=== PATIENT | male | born 1950 | race Caucasian/White ===

== ENCOUNTER 2016-11-25 06:35 | Observation (INO) | payer OTHER ==
--- NOTE | ~2016-11-25 | CN ---
Consultation Report [facility] [address] [place]. [address] NAME: TABBY HE : 52 STATUS : ADM IN PAT#: [id number] AGE: 66 ADM/REG DATE : 11/25/16 MR#: [id number] REPORT SERV DATE: 11/25/16 DICTATED BY: ESTEFANIA RIVERA DATE: 11/25/16 REPORT STATUS : Draft TRANSCRIBED BY: MODL DATE: 11/25/16 GI CONSULTATION DATE OF CONSULTATION: 11/25/2016 REASON FOR CONSULTATION: Evaluation and management of hematemesis. HISTORY OF PRESENT ILLNESS: Please note that the history of present illness is somewhat hard to gather from Mr. He as he is hard to keep awake for interview. It appears that Mr. He presented to [facility] on 11/24/2016 with a chief complaint of back pain. Also gave a history of upper abdominal discomfort, bloating, hematemesis documented by ER triage on four different occasions. He tells me only one. He at present is resting, it is hard to awaken. When we get him awake, he gives you one to two answers when you question and then goes back to sleep. Currently, he denies abdominal pain. He denies any black tarry stools or hematochezia. He tells me that he is unsure of what his emesis look like. It is noted that he vomited bright red blood, but was Hemoccult and Gastroccult negative in the emergency room, but had orthostatic hypotension. He tells me he has never had an EGD nor a colonoscopy. He has presently been placed on a Protonix drip. Hemoglobin on admission 14.3, presently now 13.7 with a BUN and creatinine that were normal at 13 and 1.17. He denies taking any NSAIDs. I have discussed with them EGD in the morning. Risks, benefits, alternatives, and complications were detailed for him to include, but not limited to risk of bleeding, perforation, infection, reaction to medications with cardiac and pulmonary side effects. He is agreeable to proceed. PAST MEDICAL HISTORY: Chronic back pain, irritable bowel syndrome, kidney stones, obstructive sleep apnea, restless legs syndrome, anxiety, depression, bipolar disorder, meningitis, syncopal episodes, hyperlipidemia, and alcohol abuse. PAST SURGICAL HISTORY: Left inguinal herniorrhaphy with mesh placement in 2016, tummy tack, bilateral pectoral implants, and eye surgery. SOCIAL HISTORY: Past tobacco. Denies alcohol. No IV drugs. Lives with the partner. FAMILY HISTORY: Noncontributory from a GI standpoint. ALLERGIES: HE IS ALLERGIC TO . MEDICATIONS: His home medications consist of Tylenol, ProAir HFA, Sinemet, Klonopin, vitamin B12, Neurontin, Vistaril, and Neupro. REVIEW OF SYSTEMS: Somewhat limited secondary to the patient's somnolent status. PHYSICAL EXAMINATION: Consultation Report [place] [id number] [place]. [address] NAME: TABBY HE : 52 STATUS : ADM IN [facility]#: [id number] AGE: 66 ADM/REG DATE : 11/25/16 MR#: [id number] REPORT SERV DATE: 11/25/16 DICTATED BY: ESTEFANIA RIVERA DATE: 11/25/16 REPORT STATUS : Draft TRANSCRIBED BY: SANTINO DATE: 11/25/16 VITAL SIGNS: Temperature is 98.2, pulse 99, respirations 20, and blood pressure 118/74. NEURO: Reveals a somnolent, hard to awake and keep awake male, resting in bed. GENERAL: He is somewhat cooperative with no obvious apparent distress. HEAD, EARS, EYES, NOSE, AND THROAT: Anicteric. Pupils are equal, round, reactive to light and accommodation. Normocephalic and atraumatic. NECK: No JVD. No palpable nodes. LUNGS: Diminished. CARDIOVASCULAR SYSTEM: Regular rate and rhythm. ABDOMEN: Soft and nontender. No distention. No rebound. No guarding. No organomegaly elicited on exam. EXTREMITIES: No edema. Normal distal pulses. SKIN: Warm, dry, and intact. PERTINENT LABORATORY DATA: Sodium 144, potassium 3.8, BUN of 13, and creatinine 1.17. White count 7.7 and hemoglobin 13.79. No abdominal imaging done on this admission. ASSESSMENT: 1. Hematemesis, documented four episodes; however, Gastroccult negative. 2. Gas bloat and distension. 3. Orthostatic hypotension. 4. Chronic low back pain. 5. Bipolar disorder. 6. Anxiety and depression. PLAN: 1. Clear liquid diet, n.p.o. after midnight. 2. Protonix ip. 3. Monitor H and H, transfuse if needed. 4. EGD in the morning with Dr. Perez, other recommendations to follow. GONSALO/SANTINO Estefania CHEMA Almeida / [id number] CC: Malcom Cano M.D.
--- NOTE | ~2016-11-25 | DS ---
Discharge Summary [facility] [address] [place]. [address] NAME: TABBY KITCHEN : 52 STATUS : DIS Giovanny PAT#: [id number] AGE: 66 ADM/REG DATE : 11/25/16 MR#: [id number] REPORT SERV DATE: 11/27/16 DICTATED BY: DATE: REPORT STATUS : Draft TRANSCRIBED BY: MODL DATE: 11/26/16 ADMISSION DATE: 11/25/2016 DISCHARGE DATE: 11/26/2016 [facility] DISCHARGE DIAGNOSES: 1. Hematemesis-found to have a healing Ora-Pond tear on upper endoscopy. 2. Orthostatic hypotension-resolved with IV fluids. 3. Chronic low back pain. 4. Bipolar disorder. 5. Anxiety and depression. IMAGING AND DIAGNOSTICS: Include upper endoscopy by Dr. Drake Perez on 11/26/2016 demonstrating a healing Ora-Pond tear. A portable chest x-ray on 11/25/2016 showing mild right basilar atelectasis but no acute cardiopulmonary abnormality. PERTINENT LABS: Hemoglobin remained stable throughout hospitalization with values ranging from 13 to 14. Comprehensive metabolic panel was normal with the exception of carbon dioxide level 23, glucose 137. BRIEF HISTORY: For full details, please see the previously dictated history of present illness by Dr. Eron Nguyễn. This is a 66-year-old white male who presents to the emergency department with chief complaint of vomiting bright red blood, also with a history of dyspepsia, bloating, some abdominal pain for several months prior. In the emergency department, hemoglobin and hematocrit were normal. Hemoccult and Gastroccult were negative. The patient was noted to have orthostatic hypotension, and was admitted to the Hospitalist Service for further evaluation. HOSPITAL COURSE: The patient was admitted to [address] [place] [address], placed on IV fluids. Serial hemoglobin and hematocrit values were obtained and did not demonstrate any decline. The patient was kept n.p.o. for GI evaluation, and placed on a Protonix drip. Nonpharmacologic DVT prophylaxis was utilized. He had no recurrence of abdominal symptoms or hematemesis while in the hospital. He underwent an uneventful EGD on 11/26/2016 demonstrating a healing Ora-Pond tear. Gastroenterology recommended Protonix 40 mg p.o. twice a day for 4 weeks, and a soft bland diet. The patient was felt appropriate for discharge from a GI perspective. DISCHARGE DISPOSITION: The patient will need to follow up with his primary care provider in 7 to 10 days, adhere to a soft bland diet until abdominal symptoms are improved. He was explicitly instructed not to take any nonsteroidal anti-inflammatories, aspirin, Goody's powders, or other blood thinners following discharge. Discharge Summary [place] [id number]. [address] NAME: TABBY KITCHEN : 52 STATUS : DIS Giovanny PAT#: [id number] AGE: 66 ADM/REG DATE : 11/25/16 MR#: [id number] REPORT SERV DATE: 11/27/16 DICTATED BY: DATE: REPORT STATUS : Draft TRANSCRIBED BY: SANTINO DATE: 11/26/16 DISCHARGE MEDICATIONS: Include: 1. Sinemet 25/100, two tablets p.o. at bedtime. 2. Gabapentin 1600 mg p.o. twice a day. 3. Vistaril 50 mg p.o. at bedtime. 4. Neupro 2 mg patch topical q.24 hours. 5. Tylenol 650 mg p.o. three times a day as needed for pain. 6. ProAir HFA two puffs inhaled daily as needed for shortness of breath. 7. B12 1000 mcg IM q.14 days. 8. Klonopin 2 mg p.o. at bedtime p.r.n. insomnia. 9. Protonix 40 mg p.o. b.i.d. for four weeks. Prescription was provided. ARTEMIO/SANTINO Malcom Cano M.D. / [id number] CC: Lisette Trevizo MD
--- NOTE | ~2016-11-25 | EGD ---
EGD REPORT [facility] [address] [place] [address] NAME: JERRY HE : 52 STATUS : ADM IN PAT#: [id number] AGE: 66 ADM/REG DATE : 11/25/16 MR#: [id number] REPORT SERV DATE: 11/26/16 DICTATED BY: DRAKE CELAYA DATE: 11/26/16 REPORT STATUS : Draft TRANSCRIBED BY: [facility] DATE: 11/26/16 Endoscopy Center Patient Name: Jerry He Date of : 1950 Attending MD: DRAKE CELAYA MD Procedure Date No Time: 11/26/2016 Procedure: Upper GI endoscopy Indications: Hematemesis Referring MD: YENIFER HILL MD Medicines: Monitored Anesthesia Care Complications: No immediate complications. Estimated blood loss: None. Procedure: After obtaining informed consent, the endoscope was passed under direct vision. Throughout the procedure, the patient's blood pressure, pulse, and oxygen saturations were monitored continuously. The GIF [id number] was introduced through the mouth, and advanced to the second part of duodenum. The upper GI endoscopy was accomplished without difficulty. The patient tolerated the procedure well. Findings: A medium-sized non-bleeding Ora-Pond tear with no stigmata of recent bleeding was found. The entire examined stomach was normal. The examined duodenum was normal. The cardia and gastric fundus were normal on retroflexion. The exam was otherwise without abnormality. Impression: - Ora-Pond tear. - The examination was otherwise normal. Recommendation: - Return patient to hospital iqbal for possible discharge same day. - Soft diet today. - Use Protonix (pantoprazole) 40 mg PO BID for 4 weeks. Procedure Code(s): --- Professional --- 61248, Esophagogastroduodenoscopy, flexible, transoral; diagnostic, including collection of specimen(s) by brushing or washing, when performed (separate procedure) Diagnosis Code(s): --- Professional --- K22.6, Gastro-esophageal laceration-hemorrhage syndrome K92.0, Hematemesis EGD REPORT [facility] [address] [place]. [address] NAME: JERRY HE : 52 STATUS : ADM IN [facility]#: [id number] AGE: 66 ADM/REG DATE : 11/25/16 MR#: [id number] REPORT SERV DATE: 11/26/16 DICTATED BY: DRAKE CELAYA DATE: 11/26/16 REPORT STATUS : Draft TRANSCRIBED BY: [employer] DATE: 11/26/16 CPT copyright 2013 [employer]. All rights reserved. The codes documented in this report are preliminary and upon certified procedural coder review may be revised to meet current compliance requirements. Drake Celaya MD DRAKE CELAYA MD 11/26/2016 10:53 AM This report has been signed electronically. Number of Addenda: 0 Note Initiated On: 11/26/2016 10:31 AM Scope Withdrawal Time 0 hours 0 minutes 0 seconds [id number] [facility] [place] [address]
--- NOTE | ~2016-11-25 | HP ---
History And Physical [facility] [address] [place]. [address] NAME: TABBY HE : 52 STATUS : ADM IN PAT#: [id number] AGE: 66 ADM/REG DATE : 11/25/16 MR#: [id number] REPORT SERV DATE: 11/25/16 DICTATED BY: ERON ARROYO DATE: 11/25/16 REPORT STATUS : Draft TRANSCRIBED BY: MODL DATE: 11/25/16 DATE OF ADMISSION: 11/25/2016 CHIEF COMPLAINT: Vomiting bright red blood. HISTORY OF PRESENT ILLNESS: This is a 66-year-old male, who presents to the emergency room at [facility] with the above-mentioned complaint. History is obtained from the patient, his grade setter who is at bedside, and reviewing data available on the [employer] system. According to Mr. He and his partner, he had been in his usual state of health until this evening around 11:30 p.m. when he suddenly started vomiting bright red blood. His grade setter says there was blood everywhere on the carpet, on the greene, on the screens, and everywhere. Apparently, he has had some dyspepsia and passing gas problems for a while and has not ever been seen by a flanging operator. He does have chronic back pain and severe restless legs syndrome, for which he has been seen in many specialty institutions as well. Mr. He cannot sit still at all and he apparently walks around all night long. They ate supper last night and he retired to bed when this happened. The patient was subsequently brought to the emergency room to be evaluated. In the emergency room, initial evaluation revealed a stable hemoglobin and hematocrit level of 14 and 41. His prothrombin time was 13.6 with an INR of 1.1. Hemoccult and Gastroccult were negative in the ER; however, he had orthostatic hypotension. Hospitalist Service is asked to admit him for further evaluation and treatment. At the time of my evaluation, he denied any chest pain, palpitations, or orthopnea. He had no cough, hemoptysis, fevers, night sweats, or weight loss. He denied any loss of consciousness or recent falls. No history of fevers or chills. No history of nausea or vomiting. He did have hematemesis as mentioned above without any hematochezia or hematuria. No other history of recent travel or exposures. PAST MEDICAL HISTORY: Significant for history of chronic back pain, history of irritable bowel syndrome, nephrolithiasis, obstructive sleep apnea, restless legs syndrome, anxiety and depression, history of meningitis in the past. He also has history of hyperlipidemia and alcohol abuse. SOCIAL HISTORY: He does not smoke, drink, or use recreational drugs. FAMILY HISTORY: Noncontributory. MEDICATIONS: His medications at home were reviewed by me in the chart today and reordered by me. REVIEW OF SYSTEMS: As in history of present illness. All other systems were reviewed in detail and are quite unremarkable. History And Physical [place] [id number] [place]. [address] NAME: TABBY HE : 52 STATUS : ADM IN [facility]#: [id number] AGE: 66 ADM/REG DATE : 11/25/16 MR#: [id number] REPORT SERV DATE: 11/25/16 DICTATED BY: ERON ARROYO DATE: 11/25/16 REPORT STATUS : Draft TRANSCRIBED BY: SANTINO DATE: 11/25/16 PHYSICAL EXAMINATION: GENERAL: This is a pleasant 66-year-old, not in any acute distress. HEENT: His head is atraumatic, normocephalic. He is alert, awake, oriented to time, place, and person. Pupils are equal, reacting to light and accommodating. External ocular muscles are intact. Membranes are moist and pink. Sclerae are nonicteric. NECK: Supple with no jugular venous distention, lymphadenopathy, or thyromegaly. LUNGS: Clear to auscultation with no wheezes, rubs, or crackles. HEART: Heart sounds were regular with no murmurs, rubs, or gallops. ABDOMEN: Soft, nontender. Bowel sounds are present. EXTREMITIES: Showed no cyanosis, clubbing, or edema. NEUROLOGIC: Grossly intact. No focal sensory or motor deficits. Higher functions appeared intact. Gait was normal. He was quite restless due to his restless legs syndrome as his grade setter points out. VITAL SIGNS: His temperature today was 98.2, pulse 107, respirations 20 a minute, blood pressure was 122/58. Oxygen saturations were 94%, breathing 2 L of oxygen via nasal cannula. LABORATORY DATA: Reviewed on the [employer] system showed a normal CMP with a blood glucose of 137. Troponin was 0.02. CBC was essentially within normal limits and urinalysis was not done today. Chest x-ray films were reviewed by me on the PACS today and interpreted by me. Today's films were compared to prior films available on the PACS as well. There is slightly increased vascular congestion; otherwise, unremarkable. IMPRESSION: 1. Acute hematemesis. 2. Orthostatic hypotension. 3. Chronic back pain. 4. Severe restless legs syndrome. 5. Obstructive sleep apnea. 6. Anxiety and depression. PLAN: We will admit Mr. He to the Hospitalist Service in the Medical Intermediate Care Unit for close monitoring. We will follow serial hemoglobin and hematocrit levels, type, cross, and transfuse as needed. We will keep him n.p.o. for now, consult Gastroenterology Service to see him in the morning. We will also start him on Protonix infusion at this time; he already received this bolus in the ER. We will start him on IV fluids at this time, hold p.o. medications as well. Further recommendations will follow after Gastroenterology has seen him in the morning. We will place him on SCDs for DVT prophylaxis while he is here. I have discussed the above plans with the patient and his grade setter. Questions were answered and they are agreeable to the above recommendations. Hospitalist Service will be following him during his stay. History And Physical [address] [address] NAME: TABBY HE : 52 STATUS : ADM IN [facility]#: [id number] AGE: 66 ADM/REG DATE : 11/25/16 MR#: [id number] REPORT SERV DATE: 11/25/16 DICTATED BY: ERON ARROYO DATE: 11/25/16 REPORT STATUS : Draft TRANSCRIBED BY: SANTINO DATE: 11/25/16 /SANTINO Eron Arroyo M.D. / [id number]
[2016-11-25 05:23] LABS: BASOPHILS 0.7 %; BASOPHILS ABSOLUTE 0.05 10/3/uL (0.0-0.16); EOSINOPHILS ABSOLUTE 0.15 10/3/uL (0.0-0.53); HEMATOCRIT 41.1 % (40.0-51.0); HEMOGLOBIN 14.3 g/dL (13.6-17.8); IMMATURE GRANULOCYTES 0.3 %; IMMATURE GRANULOCYTES ABSOLUTE 0.02 10/3/uL (0.0-0.11); LYMPHOCYTES 38.2 %; LYMPHOCYTES ABSOLUTE 2.92 10/3/uL (0.67-4.30); MEAN CORPUSCULAR HEMOGLOB 30.5 pg (26.0-34.0); MEAN CORPUSCULAR VOLUME 87.6 fL (80-100); MEAN PLATELET VOLUME 10.4 fL (9.2-13.0); MONOCYTES 7.1 %; MONOCYTES ABSOLUTE 0.54 10/3/uL (0.21-1.20); NEUTROPHILS 51.7 %; NEUTROPHILS ABSOLUTE 3.97 10/3/uL (2.02-8.40); PLATELET COUNT 197 10/3/uL (150-400); RBC DISTRIBUTION WIDTH 13.2 % (12.0-16.0); RED CELL COUNT 4.69 10/6/uL (4.7-6.1); WHITE BLOOD CELLS 7.7 10/3/uL (4.5-10.5)
[2016-11-25 05:24] LABS: ER CBC TAT 0 Hrs 06 MinsNP; MANUAL DIFF NO %; MEAN CORPUS HGB CONC 34.8 g/dL (32.0-36.0)
[2016-11-25 05:31] LABS: INTERNATIONAL NORMAL RATI 1.1 UNITS (-); PARTIAL THROMBO TIME 30.4 SEC (22.5-37.2); PROTIME (NOT ORD) 13.6 SEC (12.0-14.5)
[2016-11-25 05:42] LABS: A/G RATIO 1.1 (0.7-1.9); ALBUMIN 3.5 G/DL (3.5-5.0); ALKALINE PHOSPHATASE 68 U/L (45-117); BUN (BLOOD UREA NITROGEN) 13 MG/DL (6-23); CALCIUM, SERUM 8.7 MG/DL (8.5-10.4); CHLORIDE, SERUM 109 MMOL/L (96-112); CO2 (CARBON DIOXIDE) 23 MMOL/L (24-34); CREATININE 1.17 MG/DL (0.70-1.30); GFR AFRICAN AMERICAN 75 ML/MIN (>=60); GFR NON AFRICAN AMERICAN 65 ML/MIN (>=60); GLOBULIN 3.3 G/DL (2.5-4.1); POTASSIUM, SERUM 3.8 MMOL/L (3.5-5.3); SGOT(AST) 20 U/L (5-40); SGPT(ALT) 29 U/L (5-65); SODIUM, SERUM 144 MMOL/L (135-148); TOTAL PROTEIN 6.8 G/DL (6.0-8.5); TROPONIN I <0.02 NG/ML (<0.05)
[2016-11-25 05:46] LABS: GLUCOSE, SERUM 137 MG/DL (60-99); TOTAL BILIRUBIN 0.3 MG/DL (0-1.2)
[~2016-11-25 06:35] MED LIST: ADVIL PO; ATIVAN2 MG PO; BUSPAR10 PO; CELEXA20 PO; ESKACR PO; FLEX PO; FLOMAX4 PO; FLONASE NAS; INHALER RX PO; KLONO1 PO; KLONO2 PO; LEVAQUIN750 MG PO; LITH150 PO; LITHIUM CARB600 MG PO; NEUR300 PO; NEUR800 PO; REQUIP3 PO; REQUIP4 MG PO; SEROQUEL200 MG PO; T PO; TESS PO; TOPAMAX25 PO; ZOL50 PO; ZYPREXA10 MG PO
[2016-11-25] MEDS ORDERED: ROTIGOTINE 2 MG/24 HR TOP (07:13)
[2016-11-25] MEDS ORDERED: NEUR800 PO (07:14)
[2016-11-25] MEDS ORDERED: SINCR25100 PO (07:14)
[2016-11-25] MEDS ORDERED: T PO (07:15)
[2016-11-25] MEDS ORDERED: VIST50 PO (07:15)
[2016-11-25] MEDS ORDERED: PROAIR HFA INH (07:16)
[2016-11-25] MEDS ORDERED: B121000P IM (07:17)
[2016-11-25] MEDS ORDERED: KLONO2 PO (07:20)
[2016-11-25 13:00] LABS: HEMATOCRIT 40.9 % (40.0-51.0); HEMOGLOBIN 13.7 g/dL (13.6-17.8)
[2016-11-25 18:50] LABS: HEMATOCRIT 39.8 % (40.0-51.0); HEMOGLOBIN 13.4 g/dL (13.6-17.8)
[2016-11-26 01:11] LABS: HEMATOCRIT 40.4 % (40.0-51.0); HEMOGLOBIN 13.6 g/dL (13.6-17.8)
[2016-11-26 14:39] LABS: BASOPHILS 0.6 %; BASOPHILS ABSOLUTE 0.04 10/3/uL (0.0-0.16); EOSINOPHILS 3.7 %; EOSINOPHILS ABSOLUTE 0.23 10/3/uL (0.0-0.53); HEMATOCRIT 42.8 % (40.0-51.0); HEMOGLOBIN 14.4 g/dL (13.6-17.8); IMMATURE GRANULOCYTES 0.3 %; IMMATURE GRANULOCYTES ABSOLUTE 0.02 10/3/uL (0.0-0.11); LYMPHOCYTES 30.2 %; LYMPHOCYTES ABSOLUTE 1.88 10/3/uL (0.67-4.30); MEAN CORPUS HGB CONC 33.6 g/dL (32.0-36.0); MEAN CORPUSCULAR HEMOGLOB 29.7 pg (26.0-34.0); MEAN CORPUSCULAR VOLUME 88.2 fL (80-100); MEAN PLATELET VOLUME 10.5 fL (9.2-13.0); MONOCYTES 4.2 %; MONOCYTES ABSOLUTE 0.26 10/3/uL (0.21-1.20); PLATELET COUNT 199 10/3/uL (150-400); RBC DISTRIBUTION WIDTH 13.2 % (12.0-16.0); RED CELL COUNT 4.85 10/6/uL (4.7-6.1); WHITE BLOOD CELLS 6.2 10/3/uL (4.5-10.5)
[2016-11-26 14:42] LABS: MANUAL DIFF NO %
[2016-11-26 14:44] LABS: INTERNATIONAL NORMAL RATI 1.1 UNITS (-)
[2016-11-26 14:47] LABS: CALCIUM, SERUM 8.1 MG/DL (8.5-10.4); CHLORIDE, SERUM 108 MMOL/L (96-112); CREATININE 0.87 MG/DL (0.70-1.30); GFR AFRICAN AMERICAN 105 ML/MIN (>=60); GFR NON AFRICAN AMERICAN 91 ML/MIN (>=60); PHOSPHORUS, SERUM 2.4 MG/DL (2.5-4.5); POTASSIUM, SERUM 3.9 MMOL/L (3.5-5.3); SODIUM, SERUM 144 MMOL/L (135-148)
[2016-11-26 14:49] LABS: BUN (BLOOD UREA NITROGEN) 9 MG/DL (6-23); CO2 (CARBON DIOXIDE) 28 MMOL/L (24-34); GLUCOSE, SERUM 107 MG/DL (60-99)
[2016-11-26] MEDS ORDERED: PROTONIX PO (15:39)
== END 2016-11-26 17:21 | disposition home or self-care (01) ==
LOC: ER 06:35 → 5SO 09:47
PROVIDERS: Internal Medicine Gastroenterology; Internal Medicine Pulmonary Disease; Nurse Practitioner Acute Care
PROC: 0DJ08ZZ Inspection of Upper Intestinal Tract, Via Natural or Artificial Opening Endoscopic (ICD-10-PCS; principal; 2016-11-26 10:39)
DX: K92.0 Hematemesis (principal); K22.6 Gastro-esophageal laceration-hemorrhage syndrome; I95.1 Orthostatic hypotension; G89.29 Other chronic pain; M54.9 Dorsalgia, unspecified; G25.81 Restless legs syndrome; G47.33 Obstructive sleep apnea (adult) (pediatric); F31.9 Bipolar disorder, unspecified; E78.5 Hyperlipidemia, unspecified; F41.9 Anxiety disorder, unspecified; K58.9 Irritable bowel syndrome, unspecified; Z87.442 Personal history of urinary calculi; Z79.899 Other long term (current) drug therapy; Z98.890 Other specified postprocedural states; Z91.040 Latex allergy status
CPT/HCPCS: 36415; 71010; 80048; 80053; 83735; 84100; 84484; 85014; 85018; 85025; 85610; 85730; 86850; 86900; 86901; 96374; 96375; 96376; 99285; A9270-GY; C9113; G0378; J2405; J2550; J2765

== ENCOUNTER 2017-03-09 20:08 | Inpatient (IN) | payer OTHER ==
--- NOTE | ~2017-03-09 | CN ---
Consultation Report [facility] [address] [place]. [address] NAME: TABBY KITCHEN : 52 STATUS : ADM Giovanny PAT#: [id number] AGE: 66 ADM/REG DATE : 03/09/17 MR#: [id number] REPORT SERV DATE: 03/10/17 DICTATED BY: SEBASTIÁN DILLON DATE: 03/10/17 REPORT STATUS : Draft TRANSCRIBED BY: MODL DATE: 03/10/17 PSYCHIATRIC CONSULTATION DATE OF CONSULTATION: 03/10/2017 I reviewed the patient's medical record. I discussed the patient's status with his nurse. HISTORY OF PRESENT ILLNESS: He was admitted with self-reported confusion, lethargy, difficulty with his balance, and a fear of falling. He had a previous admission to this hospital in 03/2016 with similar symptoms. PAST PSYCHIATRIC HISTORY: At this time, he was irritable, angry, and reluctant to give any history. He was diagnosed with bipolar disorder in the distant past. He reports that he was started on Zyprexa about 20 years ago. His restlessness or akathisia started at about the same time. His PCP now prescribes his psychotropic medications, which consist of Zyprexa 10 mg at bedtime, Neurontin 800 mg b.i.d., Klonopin 1 mg at bedtime. He is prescribed Sinemet 25/100 and Neupro patch 2 mg at bedtime for alleged restless legs syndrome. SOCIAL HISTORY: He lives with a male partner. FAMILY HISTORY: He reports he has no known biological relatives. He was adopted. MENTAL STATUS: He was uncooperative in attitude. His mood was angry. He protested "I don't want to see a psychiatrist. I'm not crazy." He did not volunteer any information. He gave minimal information in response to my questions. His affect was constricted in range. His thinking was slowed, but logical. He had no delusions. He had no hallucinations. DIAGNOSIS: Bipolar disorder, by history. RECOMMENDATIONS: I am concerned that his restlessness is drug-induced akathisia and not restless legs syndrome. Dopaminergic medications can make his bipolar disorder more unstable. I am recommending we not restart Zyprexa and that we should stop Neupro and Sinemet. First stopping the Neupro and later Sinemet. I will put him back on Klonopin 0.5 mg a.m. and 1 mg at bedtime as he reports he is miserable from the restlessness. I will follow. DEMETRI/SANTINO Sebastián Dillon M.D. / [id number] Consultation Report [place] [id number] [place] [address] NAME: TABBY KITCHEN : 52 STATUS : ADM Giovanny PAT#: [id number] AGE: 66 ADM/REG DATE : 03/09/17 MR#: [id number] REPORT SERV DATE: 03/10/17 DICTATED BY: SEBASTIÁN DILLON DATE: 03/10/17 REPORT STATUS : Draft TRANSCRIBED BY: SANTINO DATE: 03/10/17 CC: Malu Greene M.D.
--- NOTE | ~2017-03-09 | DS ---
Discharge Summary [facility] [address] [place]. [address] NAME: TABBY KITCHEN : 52 STATUS : DIS IN PAT#: [id number] AGE: 66 ADM/REG DATE : 03/09/17 MR#: [id number] REPORT SERV DATE: 03/16/17 DICTATED BY: ROBBI ADAME DATE: 03/13/17 REPORT STATUS : Draft TRANSCRIBED BY: MODL DATE: 03/13/17 ADMISSION DATE: 03/09/2017 DISCHARGE DATE: 03/13/2017 DIAGNOSES: 1. Encephalopathy, secondary to polypharmacy, resolved. 2. Bipolar disorder, chronic. 3. Chronic lower back pain. EGG BREAKER: Psychiatrist, Dr. Sebastián Padilla. FOLLOWUP: The patient is to follow up with the primary care physician, who prescribes his psychiatry medication in one to two weeks and primary care is to check Depakote level. DISCHARGE MEDICATIONS: The patient is to stop Zyprexa, and to stop Neupro, but to continue with the Sinemet CR 25/100 one tab p.o. at bedtime. Start Depakote 250 mg p.o. q.a.m. and 500 mg p.o. at bedtime. Decrease Neurontin to 300 mg p.o. t.i.d., Klonopin 1 mg p.o. at bedtime p.r.n., and Beaver 5/325 one tab p.o. b.i.d. p.r.n. per home dose. IMAGING: CT of the brain without contrast, unremarkable, no acute intracranial pathology. HOSPITAL COURSE: Please see H and P dictated by Dr. Musa Lacey. 66 years old male, with a past medical history of bipolar disorder, chronic back pain, obstructive sleep apnea, who presented with confusion per friend. Apparently, the patient was under a lot of stress and the friend reported that the patient took early doses of his muscle relaxer and Zyprexa, and had increased confusion, as well as a glass of wine for which the patient usually does not drink alcohol for the past 10 years, he has been abstinent, and presented with worsening confusion, he presented to the emergency department, and had a negative CT of the brain, but was admitted for suspected medication affect, secondary to his encephalopathy. The patient also was found to have some insomnia. He was seen by Dr. Sebastián Padilla, who made medication changes. He stopped the patient's Neupro in the Zyprexa, due to the underlying akathisia and placed the patient on Depakote, and continue with the patient's Klonopin. The patient had improvement during this hospital course, also educated on alcohol abstinence. He was discharged home much improved and follow up with his primary care physician. DICTATED BY: Lisette RibeiroH/SANTINO Robbi Adame M.D. / [id number] Discharge Summary [address] [address] NAME: TABBY KITCHEN : 52 STATUS : DIS IN PAT#: [id number] AGE: 66 ADM/REG DATE : 03/09/17 MR#: [id number] REPORT SERV DATE: 03/16/17 DICTATED BY: ROBBI ADAME DATE: 03/13/17 REPORT STATUS : Draft TRANSCRIBED BY: SANTINO DATE: 03/13/17 CC: Lisette Ribeiro MD
--- NOTE | ~2017-03-09 | HP ---
History And Physical [place] [id number] [facility] [place]. [address] NAME: TABBY KITCHEN : 52 STATUS : REG ER PAT#: [id number] AGE: 66 ADM/REG DATE : 03/09/17 MR#: [id number] REPORT SERV DATE: 03/09/17 DICTATED BY: ROSEANNE CHEN DATE: 03/09/17 REPORT STATUS : Draft TRANSCRIBED BY: MODL DATE: 03/09/17 DATE OF ADMISSION: 03/09/2017 CHIEF COMPLAINT: A 66-year-old male presenting with confusion. HISTORY OF PRESENTING ILLNESS: The patient's history was obtained through a limited interview with the patient. I attempted to contact the patient's partner, Iván, but he was not answering his telephone on three separate attempts to contact him. Apparently, the patient first came into the emergency department with his partner, and a bit of the emergency room history was obtained through help of his partner, but then, he left prior to my evaluation and interview with the patient. There was also review made of [email or web address] medical records. The patient states that "I am just having a bad day." He states he has felt confused and lethargic. He felt he could not keep his balance, and was worried he was going to fall. The patient is complaining of stress stating that he moved into a new house two months ago with his partner, Iván, and that he has been anxious and intensely stressed because of this. It was reported by his partner that the patient took his evening doses of muscle relaxant and Zyprexa early in the day, and this led to increasing confusion apparently. There was also concern the patient drank some wine, although the patient himself states he has been abstinent of alcohol for about 10 years. His main pain complaint is chronic back pain and chronic bilateral knee pain. The back pain is described as dull in his lower back without radiation, 9/10 severity, and his knee pain is an aching quality pain, 8/10 severity. He states that these are his chronic typical pains. He denies any headache. No chest pain. No shortness of breath. No nausea or vomiting. No fevers or chills. No hemiparesis. No dysarthria. No double vision. REVIEW OF SYSTEMS: Otherwise, a 14-point review of systems was obtained and was negative. PAST MEDICAL HISTORY: 1. Bipolar disorder with depression and anxiety. 2. Nephrolithiasis. 3. GI bleed with a [place] tear in 11/2016, seen by Dr. Perez. 4. Obstructive sleep apnea, but not on CPAP. 5. Restless legs syndrome. 6. Meningitis in 1998 and 2000. 7. Chronic back pain. 8. Irritable bowel syndrome. 9. Migraine headaches. History And Physical [address] [address] NAME: TABBY KITCHEN : 52 STATUS : REG ER PAT#: [id number] AGE: 66 ADM/REG DATE : 03/09/17 MR#: [id number] REPORT SERV DATE: 03/09/17 DICTATED BY: ROSEANNE CHEN DATE: 03/09/17 REPORT STATUS : Draft TRANSCRIBED BY: SANTINO DATE: 03/09/17 10.Possible renal artery stenosis with stent placement. PAST SURGICAL HISTORY: 1. Bilateral pectoral implants. 2. Left inguinal hernia repair. 3. Tummy tuck. 4. Eye surgery. ALLERGIES: TO LATEX. SOCIAL HISTORY: Quit smoking more than 30 years ago. He used to be a heavy alcoholic, but states that he has been abstinent for 10 years. He lives with his male partner, Iván. He has no children. He is a retired client service professional. FAMILY HISTORY: He is adopted. CURRENT MEDICATIONS: Include carbidopa and levodopa at bedtime for restless legs syndrome, Klonopin 1 mg at bedtime, Flexeril 10 mg every eight hours as needed, Neurontin 1600 mg p.o. b.i.d., hydrocodone p.r.n., Zyprexa 10 mg p.o. q.h.s., and Neupro. PHYSICAL EXAMINATION: VITAL SIGNS: Temperature 97.6, pulse 119, blood pressure 159/106, respiratory rate 22, O2 saturation 94% on room air. GENERAL: An irritable, confused male, just in distress secondary to his irritability and restlessness. HEENT: Pupils equal, round, and reactive to light. No conjunctival pallor. No scleral icterus. Nares are patent. Oropharynx is clear of obstruction. Moist mucous membranes. NECK: Trachea midline. No thyromegaly. LYMPH: No cervical lymphadenopathy. No supraclavicular lymphadenopathy. RESPIRATORY: Clear to auscultation at bases. No wheezes, rales, or rhonchi. Normal respiratory effort. CARDIOVASCULAR: Tachycardic, regular rhythm. No murmurs, rubs, or gallops. No extremity edema is appreciated. ABDOMEN: Soft, nontender, nondistended. Normal bowel sounds auscultated throughout. No hepatosplenomegaly. DERMATOLOGICAL: Warm and dry. EXTREMITIES: No pallor, no cyanosis. PSYCHIATRIC: The patient is restless and irritable. He has a flat affect. He denies current depression. Denies suicidal ideation. Denies hallucinations. He is alert. He seems well oriented to his recent history. He has difficulty with orientation to details of time, but is oriented currently to location. LABORATORY DATA: White blood cell count 8.0, hemoglobin 15, hematocrit 44, platelets 191. Sodium 141, potassium 4.1, chloride 107, bicarb 26, BUN 14, creatinine 1.0, glucose 130, lipase 173. Troponin negative. Urine drug screen negative. Liver enzymes within normal limits. History And Physical [address] [address] NAME: TABBY KITCHEN : 52 STATUS : REG ER PAT#: [id number] AGE: 66 ADM/REG DATE : 03/09/17 MR#: [id number] REPORT SERV DATE: 03/09/17 DICTATED BY: ROSEANNE CHEN DATE: 03/09/17 REPORT STATUS : Draft TRANSCRIBED BY: SANTINO DATE: 03/09/17 STUDIES: A CT scan of the brain without contrast is pending at the time of dictation. ASSESSMENT AND PLAN: 1. Acute encephalopathy, likely medication effect. We will have the patient monitored by a sitter and obtain a stat CT scan of the brain and provide supportive care for now. 2. Polypharmacy with use of Klonopin, Flexeril, hydrocodone, Zyprexa, and Neurontin. We will reduce doses of these medications or hold them altogether, and there is concern that he might have taken an extra dose of Zyprexa as well. 3. Alcoholism. Had been reportedly abstinent for 10+ years from alcohol, but there is concern that the patient has started drinking wine again? 4. Bipolar disorder with depression and anxiety features. Consult Psychiatry, Dr. Padilla. KPL/MODL Roseanne Chen M.D. / [id number] CC: Lisette Rodriguez M.D.
[2017-03-09 18:58] LABS: BASOPHILS 0.6 %; BASOPHILS ABSOLUTE 0.05 10/3/uL (0.0-0.16); EOSINOPHILS 1.9 %; EOSINOPHILS ABSOLUTE 0.15 10/3/uL (0.0-0.53); HEMATOCRIT 44.2 % (40.0-51.0); HEMOGLOBIN 15.5 g/dL (13.6-17.8); IMMATURE GRANULOCYTES 0.5 %; IMMATURE GRANULOCYTES ABSOLUTE 0.04 10/3/uL (0.0-0.11); LYMPHOCYTES ABSOLUTE 2.41 10/3/uL (0.67-4.30); MANUAL DIFF NO %; MEAN CORPUS HGB CONC 35.1 g/dL (32.0-36.0); MEAN CORPUSCULAR HEMOGLOB 30.4 pg (26.0-34.0); MEAN CORPUSCULAR VOLUME 86.7 fL (80-100); MEAN PLATELET VOLUME 11.6 fL (9.2-13.0); MONOCYTES 9.2 %; MONOCYTES ABSOLUTE 0.74 10/3/uL (0.21-1.20); NEUTROPHILS 57.8 %; NEUTROPHILS ABSOLUTE 4.65 10/3/uL (2.02-8.40); PLATELET COUNT 191 10/3/uL (150-400); RBC DISTRIBUTION WIDTH 12.9 % (12.0-16.0)
[2017-03-09 18:59] LABS: ER CBC TAT 0 Hrs 23 Mins
[2017-03-09 19:05] LABS: ALBUMIN 3.8 G/DL (3.5-5.0); DIRECT BILIRUBIN 0.2 MG/DL (0.0-0.4); INDIRECT BILIRUBIN(NOT ORDER) 0.7 MG/DL (0.1-0.9); TOTAL PROTEIN 7.3 G/DL (6.0-8.5)
[2017-03-09 19:06] LABS: TOTAL BILIRUBIN 0.9 MG/DL (0-1.2)
[2017-03-09 19:08] LABS: CHLORIDE, SERUM 107 MMOL/L (96-112); CO2 (CARBON DIOXIDE) 26 MMOL/L (24-34); CPK 221 U/L (0-200); CREATININE 1.04 MG/DL (0.70-1.30); GFR AFRICAN AMERICAN 87 ML/MIN (>=60); GFR NON AFRICAN AMERICAN 75 ML/MIN (>=60); POTASSIUM, SERUM 4.1 MMOL/L (3.5-5.3); SODIUM, SERUM 141 MMOL/L (135-148); TROPONIN I <0.02 NG/ML (<0.05)
[2017-03-09 19:10] LABS: BUN (BLOOD UREA NITROGEN) 14 MG/DL (6-23); CALCIUM, SERUM 9.1 MG/DL (8.5-10.4); CHEST PAIN PROFILE TAT 0 Hrs 33 Mins; GLUCOSE, SERUM 130 MG/DL (60-99)
[2017-03-09 19:11] LABS: ACETAMINOPHEN LEVEL (TYLENOL) < 2.0 MCG/ML (10.0-20.0); ALCOHOL < 10 MG/DL (0); SALICYLATE < 1.7 MG/DL (-)
[~2017-03-09 20:08] MED LIST changes: +B121000P IM; +PROAIR HFA INH; +PROTONIX PO; +ROTIGOTINE 2 MG/24 HR TOP; +SINCR25100 PO; +VIST50 PO
[2017-03-09 20:28] LABS: INTERNATIONAL NORMAL RATI 1.1 UNITS (-); PROTIME (NOT ORD) 14.2 SEC (12.0-14.5)
[2017-03-09 20:34] LABS: PARTIAL THROMBO TIME 29.2 SEC (22.5-37.2)
[2017-03-09] MEDS ORDERED: NEUR800 PO (20:59)
[2017-03-09] MEDS ORDERED: ZYPREXA10 MG PO (20:59)
[2017-03-09] MEDS ORDERED: FLEX PO (20:59)
[2017-03-09] MEDS ORDERED: KLONO1 PO (21:00)
[2017-03-09] MEDS ORDERED: ROTIGOTINE TOP (21:01)
[2017-03-09] MEDS ORDERED: NORCO1 TA1 PO (21:01)
[2017-03-09] MEDS ORDERED: SINCR25100 PO (21:07)
[2017-03-09 22:46] LABS: ASCORBIC ACID (UR NOT ORDER) 40 (NEG); BILIRUBIN, URINE NEGATIVE (NEG); ER URINALYSIS TAT 0 Hrs 14 Mins; KETONE, URINE NEGATIVE (NEG); LEUKOCYTE ESTERASE(NOT OR NEG (NEG); NITRITE (URINE) NEG (NEG); WBC (NOT ORDERED) (RFLEX) 4 (0-5)
[2017-03-09 22:55] LABS: AMPHETAMINES (NOT ORD) NEG (NEG); BARBITURATES (NOT ORDERED NEG (NEG); BENZODIAZEPINES (NOT ORD) POS (NEG); CANNABINOIDS (THC) POS (NEG); COCAINE (NOT ORDERED) NEG (NEG); OPIATES NEG (NEG); PHENCYCLIDINE(PCP) NEG (NEG); TRICYCLICS POS (NEG)
[2017-03-10 04:32] LABS: BASOPHILS 0.8 %; BASOPHILS ABSOLUTE 0.06 10/3/uL (0.0-0.16); EOSINOPHILS ABSOLUTE 0.15 10/3/uL (0.0-0.53); HEMATOCRIT 42.8 % (40.0-51.0); HEMOGLOBIN 14.6 g/dL (13.6-17.8); IMMATURE GRANULOCYTES 0.3 %; IMMATURE GRANULOCYTES ABSOLUTE 0.02 10/3/uL (0.0-0.11); LYMPHOCYTES 38.7 %; LYMPHOCYTES ABSOLUTE 2.87 10/3/uL (0.67-4.30); MEAN CORPUS HGB CONC 34.1 g/dL (32.0-36.0); MEAN CORPUSCULAR HEMOGLOB 29.9 pg (26.0-34.0); MEAN CORPUSCULAR VOLUME 87.7 fL (80-100); MEAN PLATELET VOLUME 11.3 fL (9.2-13.0); MONOCYTES 7.6 %; MONOCYTES ABSOLUTE 0.56 10/3/uL (0.21-1.20); NEUTROPHILS 50.6 %; NEUTROPHILS ABSOLUTE 3.75 10/3/uL (2.02-8.40); PLATELET COUNT 199 10/3/uL (150-400); RED CELL COUNT 4.88 10/6/uL (4.7-6.1); WHITE BLOOD CELLS 7.4 10/3/uL (4.5-10.5)
[2017-03-10 04:33] LABS: MANUAL DIFF NO %
[2017-03-10 04:36] LABS: INTERNATIONAL NORMAL RATI 1.2 UNITS (-); PROTIME (NOT ORD) 15.4 SEC (12.0-14.5)
[2017-03-10 04:37] LABS: PARTIAL THROMBO TIME 34.9 SEC (22.5-37.2)
[2017-03-10 04:51] LABS: ALBUMIN 3.1 G/DL (3.5-5.0); ALKALINE PHOSPHATASE 67 U/L (45-117); BUN (BLOOD UREA NITROGEN) 15 MG/DL (6-23); CALCIUM, SERUM 8.4 MG/DL (8.5-10.4); CHLORIDE, SERUM 108 MMOL/L (96-112); CO2 (CARBON DIOXIDE) 25 MMOL/L (24-34); CREATININE 0.96 MG/DL (0.70-1.30); GFR AFRICAN AMERICAN 96 ML/MIN (>=60); GFR NON AFRICAN AMERICAN 83 ML/MIN (>=60); GLOBULIN 3.2 G/DL (2.5-4.1); GLUCOSE, SERUM 131 MG/DL (60-99); PHOSPHORUS, SERUM 2.8 MG/DL (2.5-4.5); POTASSIUM, SERUM 3.7 MMOL/L (3.5-5.3); SGOT(AST) 30 U/L (5-40); SGPT(ALT) 13 U/L (5-65); SODIUM, SERUM 141 MMOL/L (135-148); TOTAL BILIRUBIN 0.9 MG/DL (0-1.2); TOTAL PROTEIN 6.3 G/DL (6.0-8.5); ULTRASENSITIVE TSH 0.543 MCIU/ML (0.358-3.740)
[2017-03-13] MEDS ORDERED: DEPAKOT250 PO (11:56)
[2017-03-13] MEDS ORDERED: DEPAKOT500 PO (11:57)
[2017-03-13] MEDS ORDERED: NEUR800 PO (11:59)
[2017-03-13] MEDS ORDERED: **MEDICINE TO STOP (12:05)
== END 2017-03-13 14:30 | disposition home or self-care (01) | DRG 917 ==
LOC: ER 20:08 → 7NO 22:54
PROVIDERS: Emergency Medicine; Internal Medicine
DX: T48.201A Poisoning by unspecified drugs acting on muscles, accidental (unintentional), initial encounter (principal); G92 Toxic encephalopathy; T43.591A Poisoning by other antipsychotics and neuroleptics, accidental (unintentional), initial encounter; G47.00 Insomnia, unspecified; F31.9 Bipolar disorder, unspecified; F10.21 Alcohol dependence, in remission; M54.5 Low back pain; G25.81 Restless legs syndrome; G89.29 Other chronic pain; F41.9 Anxiety disorder, unspecified; K58.9 Irritable bowel syndrome, unspecified; G43.909 Migraine, unspecified, not intractable, without status migrainosus; Z95.828 Presence of other vascular implants and grafts; Z87.891 Personal history of nicotine dependence
CPT/HCPCS: 70450; 71010; 80048; 80053; 80076; 80305; 80307; 81001; 82550; 83605; 83690; 83735; 84100; 84443; 84484; 85025; 85610; 85730; 96374; 99285; A9270-GY; J1200; J3411